=== PATIENT | female | born 1995 | race Caucasian/White ===

== ENCOUNTER 2023-01-02 11:55 | Outpatient (AMB) | payer OTHER, SELFPAY ==
--- NOTE | 2023-01-02 12:22 | AM.OFFWIN_ITS ---
Intake Vital Signs 01/02/23 12:32 Weight 194 lb BP 110/62 Blood Pressure Location Rt brachial Position Sitting Pulse 70 Pulse Source Pulse Oximeter Pulse Oximetry (%) 98 Oxygen Delivery Method Room Air Intake Visit Reasons: [employer], WC, Left hand crush injury Intake Note: Patient here because she was loading containers at work and slammed her left hand up against one. Patient Tobacco Use Status: Never used Tobacco Allergies No Known Allergies Allergy (Verified 01/02/23 12:34) Do you need a note to return to daycare/school/sports/work: Yes HPI [employer], WC, Left hand crush injury HPI Details 27-year-old female presents to the office for a sick visit. Patient is active . While lifting heavy box, patient's left hand was accidentally jammed. [facility] Social History Patient Tobacco Use Status: Never used Tobacco Physical Exam Vital Signs: Last Vital Signs Pulse 70 01/02/23 12:32 BP 110/62 01/02/23 12:32 Pulse Ox 98 01/02/23 12:32 Oxygen Delivery Method Room Air 01/02/23 12:32 Extrem Other: Left hand: Swelling on the dorsum of the hand with minimal tenderness over the 1st and 2nd metacarpal. Assessment & Plan Assessment & Plan (1) Contusion of hand, left: Code(s): S60.222A - Contusion of left hand, initial encounter Plan: X-ray images were personally reviewed by me. No fractures seen. Reassurance. Note for work given. Meloxicam called in. Orders: Orders XR hand LT min 3V Today S60.222A - Contusion of left hand, initial encounter Coding Level of Care Code Est Pt Level 4 (45663) Diagnoses Contusion of hand, left S60.222A
[2023-01-02 12:32] VITALS: BP 110/62; PULSE 70; O2SAT 98
== END 2023-01-02 13:58 | disposition home or self-care (01) ==
PROVIDERS: Visit Provider Internal Medicine
DX: S60.222A Contusion of left hand, initial encounter (principal)
CPT/HCPCS: 99214

== ENCOUNTER 2023-01-02 13:11 | Outpatient (REF) | payer OTHER, SELFPAY ==
--- NOTE | ~2023-01-02 | XR_ITS ---
EXAMINATION: XR HAND, LEFT CLINICAL INFORMATION: Left hand contusion. COMPARISON: None available. TECHNIQUE: PA, lateral, and oblique views of the left hand. FINDINGS: The bones and soft tissues are normal. No fracture. Alignment is anatomic. Joint spaces are maintained. No erosions or soft tissue calcifications. XR/XR hand LT min 3V IMPRESSION: Unremarkable left hand.
== END 2023-01-02 13:12 | disposition home or self-care (01) ==
LOC: HO.HMGCX 13:11
PROVIDERS: Visit Provider Internal Medicine
DX: S60.222A Contusion of left hand, initial encounter (principal)
CPT/HCPCS: 73130

== ENCOUNTER → 2023-10-27 08:07 | Outpatient (BNVA) | payer OTHER, SELFPAY | PROVIDERS: Visit Provider Registered Nurse | DX: S16.1XXA Strain of muscle, fascia and tendon at neck level, initial encounter (principal); V89.2XXA Person injured in unspecified motor-vehicle accident, traffic, initial encounter | CPT/HCPCS: 99202 ==